=== PATIENT | female | born 1980 | race Caucasian/White ===

== ENCOUNTER 2016-03-21 19:11 | Emergency (ER) | payer BC ==
[2016-03-21 20:13] VITALS: BP 142/87
--- NOTE | 2016-03-21 21:26 | UC ---
Respiratory Complaint HPI - HPI Summary HPI Summary: 3 week history of wheezing and congestion. - History of Current Complaint Chief Complaint: UCRespiratory Stated Complaint: COUGH/CONGESTION/WHEEZING Time Seen by Provider: 03/21/16 21:16 Hx Obtained From: Patient Hx Last Menstrual Period: 03/11/16 Onset/Duration: Gradual Onset, Lasting Weeks Timing: Intermittent Episodes - of wheeze and congestion. Severity Initially: Moderate Severity Currently: Moderate Character: Cough: Productive Aggravating Factors: Exertion, Deep Breaths, Recumbent Position Alleviating Factors: Bronchodilator - occasional use only, last used 4 days ago Associated Signs And Symptoms: Positive: Fever - low grae, Wheezing, Nasal Congestion, Hoarseness - Risk Factors Pulmonary Embolism Risk Factors: Negative Cardiac Risk Factors: Negative Pseudomonas Risk Factors: Negative Tuberculosis Risk Factors: Negative - Allergies/Home Medications Allergies/Adverse Reactions: Allergies Allergy/AdvReac Type Severity Reaction Status Date / Time No Known Allergies Allergy Verified 03/21/16 20:13 Home Medications: Home Medications Loratadine & Pseudoephedrine [Claritin-D 24 Hour 10-240 mg] 1 tab PO DAILY 03/21 [History Confirmed 03/21/16] Multiple Vitamin [Multi Vitamin] 1 tab PO DAILY 03/21/16 [History Confirmed 04/05] PMH/Surg Hx/FS Hx/Imm Hx Previously Healthy: Yes - Surgical History Surgical History: None - Family History Known Family History: Positive: Cardiac Disease - father has had CHF, Hypertension - father Negative: Respiratory Disease - Social History Occupation: Employed Full-time Lives: Alone Alcohol Use: Occasionally Substance Use Type: None Smoking Status (MU): Never Smoked Tobacco Have You Smoked in the Last Year: No Review of Systems Constitutional: Fatigue Skin: Negative Eyes: Negative ENT: Sore Throat Respiratory: Cough Cardiovascular: Negative Gastrointestinal: Negative Genitourinary: Negative Motor: Negative Neurovascular: Negative Musculoskeletal: Negative Neurological: Negative Psychological: Negative All Other Systems Reviewed And Are Negative: Yes Physical Exam Triage Information Reviewed: Yes Appearance: Ill-Appearing - looks mildly unwell Vital Signs: Initial Vital Signs Temp 99.5 F 03/21/16 20:08 Pulse 100 03/21/16 20:08 Resp 16 03/21/16 20:08 BP 142/87 03/21/16 20:08 Pulse Ox 99 03/21/16 20:08 Eye Exam: Normal ENT: Positive: Pharyngeal erythema, TMs normal Neck: Positive: Supple, Nontender Respiratory: Positive: Decreased breath sounds, Wheezing - scattered wheezing through both lung green Cardiovascular: Positive: RRR, No Murmur Neurological Exam: Normal Psychological Exam: Normal Skin Exam: Normal UC Diagnostic Evaluation - Laboratory O2 Sat by Pulse Oximetry: 99 Respiratory Course/Dx - Course Course Of Treatment: azithromycin for bronchitis. - Differential Dx/Diagnosis Differential Diagnosis/HQI/PQRI: Asthma, Bronchitis, Influenza, Sinusitis Provider Diagnoses: bronchitis. Discharge - Discharge Plan Condition: Stable Disposition: HOME Prescriptions: Albuterol HFA INHALER* [Ventolin HFA Inhaler*] 1 - 2 puff INH Q4H PRN #1 mdi PRN Reason: Wheezing Azithromycin TAB* [Zithromax TAB (Z-PEPPER) 250 mg #6 tabs] 250 mg PO DAILY #4 tab Patient Education Materials: Acute Bronchitis (ED) Additional Instructions: Take full course of antibiotics, and ensure that you increase rest and sleep. Use albuterol as needed to decrease wheeze.
[2016-03-21] MEDS ORDERED: Azithromycin TAB* 250 MG PO ONE (21:30)
== END 2016-03-21 21:44 | disposition home or self-care (01) ==
LOC: UCCORT 19:11
DX: J40 Bronchitis, not specified as acute or chronic (principal)
CPT/HCPCS: 99212; A9270-GY; G0463

== ENCOUNTER 2016-07-05 13:01 | Emergency (ER) | payer BC ==
[2016-07-05 13:21] VITALS: BP 135/88
--- NOTE | 2016-07-05 14:18 | UC ---
Knee Pain HPI - HPI Summary HPI Summary: left knee pain and swelling--has been getting worse over the past 7 days-- - History of Current Complaint Chief Complaint: UCLowerExtremity Stated Complaint: LEFT KNEE PAIN Time Seen by Provider: 07/05/16 14:12 Hx Obtained From: Patient Hx Last Menstrual Period: 06/26/16 ?: No Onset/Duration: Gradual Onset, Lasting Days - 7, Worse Since - one day Severity Initially: Mild Severity Currently: Moderate Location Of Injury: left knee Pain Intensity: 6 Pain Scale Used: 0-10 Numeric Character: Throbbing, Stiffness Aggravating Factor(s): Movement, Weight Bearing Alleviating Factor(s): Rest, Position Associated Signs And Symptoms: Positive: Swelling Able to Bear Weight: Yes - with pain - Allergies/Home Medications Allergies/Adverse Reactions: Allergies Allergy/AdvReac Type Severity Reaction Status Date / Time No Known Allergies Allergy Verified 07/05/16 13:21 PMH/Surg Hx/FS Hx/Imm Hx Previously Healthy: Yes - Surgical History Surgical History: None - Family History Known Family History: Positive: Cardiac Disease - father has had CHF, Hypertension - father Negative: Respiratory Disease - Social History Occupation: Employed Full-time - teacher Lives: With Family Alcohol Use: Occasionally Substance Use Type: None Smoking Status (MU): Never Smoked Tobacco Have You Smoked in the Last Year: No Review of Systems Constitutional: Negative Skin: Negative Eyes: Negative ENT: Negative Respiratory: Negative Cardiovascular: Negative Gastrointestinal: Negative Genitourinary: Negative Motor: Decreased ROM - left knee due to pain Neurovascular: Negative Musculoskeletal: Arthralgia - left knee, Edema - left knee Neurological: Negative Psychological: Negative All Other Systems Reviewed And Are Negative: Yes Physical Exam Triage Information Reviewed: Yes Appearance: Well-Appearing, Well-Nourished, Pain Distress Vital Signs: Initial Vital Signs Temp 98.2 F 07/05/16 13:14 Pulse 55 07/05/16 13:14 Resp 16 07/05/16 13:14 BP 135/88 07/05/16 13:14 Pulse Ox 100 07/05/16 13:14 Vital Signs Reviewed: Yes Eye Exam: Normal Eyes: Positive: Conjunctiva Clear ENT Exam: Normal ENT: Positive: Normal ENT inspection, Hearing grossly normal. Negative: Nasal congestion, Nasal drainage, Trismus, Muffled/hoarse voice Dental Exam: Normal Neck exam: Normal Neck: Positive: Supple, Nontender, No Lymphadenopathy Respiratory Exam: Normal Respiratory: Positive: Chest non-tender, Lungs clear, Normal breath sounds, No respiratory distress, No accessory muscle use Cardiovascular Exam: Normal Cardiovascular: Positive: RRR, No Murmur, Pulses Normal, Brisk Capillary Refill Musculoskeletal Exam: Normal Musculoskeletal: Positive: Strength Limited @ - right knee, ROM Limited @ - right knee, Edema @ - right knee Neurological Exam: Normal Neurological: Positive: Alert, Muscle Tone Normal Psychological Exam: Normal Skin Exam: Normal Diagnostics - Radiology No standard instances Xray Interpretation: Positive (See Comments) - Arthritis changes left knee Radiology Interpretation Completed By: Radiologist Re-Evaluation - Re-Evaluation First Eval Change: Improved - cane , donaldo wrap Knee Pain Course/Dx - Course Course Of Treatment: follow with ortho , Mobic, Physical therapy, prn hydrocodone at [facility] , donaldo and cane - Differential Dx/Diagnosis Differential Diagnosis/HQI/PQRI: Bursitis, Contusion, Fracture (Closed), Sprain , Strain Provider Diagnoses: Arthritis left knee Discharge - Discharge Plan Condition: Stable Disposition: HOME Prescriptions: Hydrocodone-Acetaminophen [Hydrocodone/Acetaminophen 5-325 mg] 1 tab PO Q6H PRN #16 tab MDD 4 PRN Reason: Pain Meloxicam [Mobic] 7.5 mg PO BID #60 tab Patient Education Materials: Knee Pain (ED), Arthritis (ED) Referrals: Mariano Jane MD [Medical Doctor] - 5 Days Cornell Kent MD [Primary Care Provider] -
[2016-07-05] MEDS ORDERED: Ibuprofen TAB* 600 MG PO ONE (14:19)
--- NOTE | 2016-07-05 14:56 | RAD ---
INDICATION: Knee pain COMPARISON: None TECHNIQUE: AP, lateral, tunnel, and sunrise views were obtained. FINDINGS: There are no acute bony findings. There is minor spurring tibial spines and there is minor patellofemoral spurring. There is no significant joint effusion. IMPRESSION: MINOR OSTEOARTHRITIC CHANGES
== END 2016-07-05 15:27 | disposition home or self-care (01) ==
LOC: UCCORT 13:01
DX: M17.12 Unilateral primary osteoarthritis, left knee (principal)
CPT/HCPCS: 99213; A9270-GY; G0463

== ENCOUNTER 2017-03-09 14:26 | Emergency (ER) | payer BC ==
[2017-03-09 15:08] VITALS: BP 136/86
[2017-03-09] MEDS ORDERED: Albuterol HFA INHALER* 8 gm MDI INH ONE ×2 (16:22→16:52)
--- NOTE | 2017-03-09 16:22 | UC ---
Throat Pain/Nasal [place] HPI - HPI Summary HPI Summary: Patient has had a cough for a few days, no it is sever, STEPHENSON, neck and body aches , sore throat. denies fever, + chills - History of Current Complaint Chief Complaint: UCRespiratory Stated Complaint: COUGH/VOMITTING CAUSING SOB Time Seen by Provider: 03/09/17 16:13 Hx Obtained From: Patient Hx Last Menstrual Period: 02/21/17 ?: No Onset/Duration: Sudden Onset, Lasting Days Severity: Moderate Cough: Nonproductive Associated Signs & Symptoms: Positive: Dysphagia, Wheezing, Vomiting - Allergies/Home Medications Allergies/Adverse Reactions: Allergies Allergy/AdvReac Type Severity Reaction Status Date / Time No Known Allergies Allergy Verified 03/09/17 15:08 PMH/Surg Hx/FS Hx/Imm Hx Previously Healthy: Yes - Surgical History Surgical History: None - Family History Known Family History: Positive: Cardiac Disease - father has had CHF, Hypertension - father Negative: Respiratory Disease - Social History Alcohol Use: Rare Substance Use Type: None Smoking Status (MU): Never Smoked Tobacco Have You Smoked in the Last Year: No Review of Systems Constitutional: Chills, Fatigue Skin: Negative Eyes: Negative ENT: Sore Throat, Ear Ache, Nasal Discharge Respiratory: Shortness Of Breath, Cough Cardiovascular: Negative Gastrointestinal: Vomiting Genitourinary: Negative Motor: Negative Neurovascular: Negative Musculoskeletal: Myalgia Neurological: Headache Psychological: Negative Is Patient Immunocompromised?: No All Other Systems Reviewed And Are Negative: Yes Physical Exam Triage Information Reviewed: No Appearance: Well-Appearing, Well-Nourished, Ill-Appearing, Pain Distress Vital Signs: Initial Vital Signs Temp 99.9 F 03/09/17 15:03 Pulse 91 03/09/17 15:03 Resp 18 03/09/17 15:03 BP 136/86 03/09/17 15:03 Pulse Ox 98 03/09/17 15:03 Vital Signs Reviewed: Yes Eye Exam: Normal ENT: Positive: Pharyngeal erythema, TM bulging, TM dull - bilaterally, Tonsillar swelling Dental Exam: Normal Neck exam: Normal Neck: Positive: Supple, Nontender, Enlarged Nodes @ - bilateral cervical, occipital Respiratory Exam: Normal Respiratory: Positive: Chest non-tender, Rhonchi, Wheezing, Inspiration Cardiovascular Exam: Normal Cardiovascular: Positive: RRR, No Murmur, Pulses Normal Abdominal Exam: Normal Abdomen Description: Positive: Nontender, No Organomegaly, Soft Bowel Sounds: Positive: Present Musculoskeletal Exam: Normal Musculoskeletal: Positive: Strength Intact, ROM Intact, No Edema Neurological Exam: Normal Neurological: Positive: Alert, Muscle Tone Normal Psychological Exam: Normal Skin Exam: Normal Re-Evaluation - Re-Evaluation First Eval Re-Evaluation Time: 16:50 Change: Improved - following neb treatment Throat Pain/Nasal Course/Dx - Course Course Of Treatment: hx obtained, exam performed ,meds reviewed, rapid flu obtained. - Differential Dx/Diagnosis Differential Diagnosis/HQI/PQRI: Otitis Media, Pharyngitis, Sinusitis, URI Provider Diagnoses: bronchospasm, wheezing, influenza B Discharge - Discharge Plan Condition: Stable Disposition: HOME Patient Education Materials: Influenza (ED) Referrals: Cornell Kent MD [Primary Care Provider] - Additional Instructions: 1. Take the medication as prescribed. 2. If you develop any increased severe respiratory distress follow up in the ER. 3. Increase fluids and get plenty of rest.
[2017-03-09] MEDS ORDERED: Albuterol 2.5 MG/3 ML NEB.SOL* (0.083%) INH ONE (16:31)
== END 2017-03-09 17:10 | disposition home or self-care (01) ==
LOC: UCCORT 14:26
DX: J98.01 Acute bronchospasm (principal); R06.2 Wheezing; J10.1 Influenza due to other identified influenza virus with other respiratory manifestations
CPT/HCPCS: 87502; 99213; A9270-GY; G0463

== ENCOUNTER 2017-03-19 16:05 | Emergency (ER) | payer BC ==
[2017-03-19 17:06] VITALS: BP 149/93
--- NOTE | 2017-03-19 17:35 | UC ---
Throat Pain/Nasal [place] HPI - HPI Summary HPI Summary: Pt c/o nasal congestion, sinus pressure and pain X 2 weeks. Pt was diagnosed with flu A 1 week ago. Now c/o continued nasal congestion, sinus pressure and pain. - History of Current Complaint Chief Complaint: UCGeneralIllness Stated Complaint: SINUS PRESSURE Time Seen by Provider: 03/19/17 17:10 Hx Obtained From: Patient Hx Last Menstrual Period: 03/19/17 ?: No Onset/Duration: Gradual Onset, Lasting Days - 14 Severity: Moderate Pain Intensity: 7 Associated Signs & Symptoms: Positive: Sinus Discomfort - Allergies/Home Medications Allergies/Adverse Reactions: Allergies Allergy/AdvReac Type Severity Reaction Status Date / Time No Known Allergies Allergy Verified 03/19/17 17:01 PMH/Surg Hx/FS Hx/Imm Hx Previously Healthy: Yes - Surgical History Surgical History: None - Family History Known Family History: Positive: Cardiac Disease - father has had CHF, Hypertension - father Negative: Respiratory Disease - Social History Occupation: Employed Full-time Lives: With Family Alcohol Use: Occasionally Substance Use Type: None Smoking Status (MU): Never Smoked Tobacco Have You Smoked in the Last Year: No Review of Systems Constitutional: Negative Skin: Negative Eyes: Negative ENT: Sinus Congestion, Sinus Pain/Tenderness Respiratory: Negative Cardiovascular: Negative Gastrointestinal: Negative Genitourinary: Negative Motor: Negative Neurovascular: Negative Musculoskeletal: Negative Neurological: Headache Psychological: Negative Is Patient Immunocompromised?: No All Other Systems Reviewed And Are Negative: Yes Physical Exam Triage Information Reviewed: Yes Appearance: Ill-Appearing Vital Signs: Initial Vital Signs Temp 98.2 F 03/19/17 17:02 Pulse 85 03/19/17 17:02 Resp 16 03/19/17 17:02 BP 149/93 03/19/17 17:02 Pulse Ox 100 03/19/17 17:02 Vital Signs Reviewed: Yes Eye Exam: Normal ENT Exam: Other ENT: Positive: Nasal congestion, Sinus tenderness - right maxillary sinus Neck exam: Normal Respiratory Exam: Normal Cardiovascular Exam: Normal Musculoskeletal Exam: Normal Neurological Exam: Normal Psychological Exam: Normal Skin Exam: Normal Throat Pain/Nasal Course/Dx - Differential Dx/Diagnosis Differential Diagnosis/HQI/PQRI: Sinusitis, URI Provider Diagnoses: sinusitis Discharge - Discharge Plan Condition: Stable Disposition: HOME Prescriptions: Amoxicillin PO (*) [Amoxicillin 875 MG (*)] 875 mg PO Q12H #20 tab Patient Education Materials: Sinusitis (ED) Referrals: No Primary Care Phys,NOPCP [Primary Care Provider] - [facility] [place] [facility] [Outside]
== END 2017-03-19 17:35 | disposition home or self-care (01) ==
LOC: UCCORT 16:05
DX: J32.9 Chronic sinusitis, unspecified (principal)
CPT/HCPCS: 99212; G0463

== ENCOUNTER 2018-05-13 17:05 | Emergency (ER) | payer BC ==
[2018-05-13 18:13] VITALS: BP 145/95
--- NOTE | 2018-05-13 19:06 | UC ---
Back Pain HPI - HPI Summary HPI Summary: Pt presents with c/o intermittent low back pain X 1 month, Pt denies any recent injury Has hx of low back pain. - History of Current Complaint Chief Complaint: UCBackPain Stated Complaint: BACK/HIP PAIN Time Seen by Provider: 05/13/18 18:32 Hx Obtained From: Patient Hx Last Menstrual Period: 04/23/18 ?: No Onset/Duration: Gradual Onset, Lasting Hours, Resolved Timing: Intermittent, Lasting Hours Severity Initially: Moderate Severity Currently: None Pain Intensity: 1 Back Pain: Is Diffuse Character: Sharp, Dull, Aching, Spasmodic, Stiffness Aggravating Factor(s): Movement, Other - prolonged standing Alleviating Factor(s): Rest, Position, OTC Meds Associated Signs And Symptoms: Positive: Negative - Risk Factors AAA Risk Factors: Negative TAD Risk Factors: Negative Cauda Equina Risk Factors: Negative Epidural Abscess Risk Factors: Negative - Allergies/Home Medications Allergies/Adverse Reactions: Allergies Allergy/AdvReac Type Severity Reaction Status Date / Time No Known Allergies Allergy Verified 05/13/18 18:05 Home Medications: Home Medications Naproxen Sodium [Naproxen 220 mg] 220 mg PO PRN 05/13/18 [History] PMH/Surg Hx/FS Hx/Imm Hx Previously Healthy: Yes - Surgical History Surgical History: None - Family History Known Family History: Positive: Cardiac Disease - father has had CHF, Hypertension - father Negative: Respiratory Disease - Social History Occupation: Employed Full-time Lives: With Family Alcohol Use: Occasionally Substance Use Type: None Smoking Status (MU): Never Smoked Tobacco Have You Smoked in the Last Year: No Review of Systems All Other Systems Reviewed And Are Negative: Yes Constitutional: Positive: Negative Skin: Positive: Negative Eyes: Positive: Negative ENT: Positive: Negative Respiratory: Positive: Negative Cardiovascular: Positive: Negative Gastrointestinal: Positive: Negative Genitourinary: Positive: Negative Motor: Positive: Negative Neurovascular: Positive: Negative Musculoskeletal: Positive: Myalgia Neurological: Positive: Negative Psychological: Positive: Negative Is Patient Immunocompromised?: No Physical Exam Triage Information Reviewed: Yes Appearance: Well-Appearing, Obese Vital Signs: Initial Vital Signs Temp 97.9 F 05/13/18 18:07 Pulse 81 05/13/18 18:07 Resp 16 05/13/18 18:07 BP 145/95 05/13/18 18:07 Pulse Ox 100 05/13/18 18:07 Vital Signs Reviewed: Yes Eye Exam: Normal ENT Exam: Normal Dental Exam: Normal Neck exam: Normal Respiratory Exam: Normal Musculoskeletal Exam: Normal Musculoskeletal: Positive: Strength Intact, ROM Intact, No Edema Neurological Exam: Normal Psychological Exam: Normal Skin Exam: Normal Back Pain Course/Dx - Differential Dx/Diagnosis Differential Diagnosis/HQI/PQRI: Herniated Disc, Sprain Provider Diagnosis: Low back strain Discharge - Sign-Out/Discharge Documenting (check all that apply): Patient Departure All imaging exams completed and their final reports reviewed: No Studies - Discharge Plan Condition: Stable Disposition: HOME Patient Education Materials: Back Pain (ED), Lower Back Exercises (ED) Referrals: [facility] [Outside] - If Needed No Primary Care Phys,NOPCP [Primary Care Provider] - - Billing Disposition and Condition Condition: STABLE Disposition: Home - Attestation Statements Provider Attestation: Per institutional requirements, I have reviewed the chart, however, I was not consulted specifically or made aware of this patient by the midlevel provider. I did not personally evaluate, interact with , or disposition this patient.
== END 2018-05-13 19:16 | disposition home or self-care (01) ==
LOC: UCCORT 17:05
DX: S39.012A Strain of muscle, fascia and tendon of lower back, initial encounter (principal); X58.XXXA Exposure to other specified factors, initial encounter; Y92.9 Unspecified place or not applicable
CPT/HCPCS: 99211; G0463

== ENCOUNTER 2019-06-01 08:34 | Emergency (ER) | payer BC ==
--- NOTE | 2019-06-01 09:06 | UC ---
Headache HPI - HPI Summary HPI Summary: 39 yo with hx of migraine, with onset of headache on 05/29/19. Began gradually and has worsened, bilateral, with mild photophobia and nausea but no dizziness, vision changes, ataxia. Typical migraine for her tends to be associated with menses, responds to ibuprofen, and has mild scotoma. Hx of allergies and sinus congestion, did begin having some ear pressure and sinus pressure last week which provoked her beginning use of anthistamine. She does have increase in pain with forward bending. Has had sinus infections in the past. Finding it hard to focus. Hx of anxiety, took paroxitene in the past, and she is aware that the current change of routine is very upsetting to her. Did adopt a dog last weekend, denies hx of dog allergy, but is aware of adjustment in routine. Sleep mildly disrupted. She has been taking ibuprofen 600 to 800 mg once daily. - History Of Current Complaint Chief Complaint: Paul Stated Complaint: HEADACHE x3 DAYS Time Seen by Provider: 06/01/19 09:02 Hx Obtained From: Patient Hx Last Menstrual Period: 05/21/19 Onset/Duration: Gradual Onset, Lasting Days Onset Of Symptoms: Gradual Initially Headache Was: Moderate Pain Intensity: 7 Timing: Constant Character: Throbbing, Pressure Location of Headache: Temporal - both temples Aggravating Factor(s): Position Change, Bright Lights Allevating Factor(s): Rest, Medication Associated Signs And Symptoms: Positive: Nausea, Sinus Pressure, Neck Pain. Negative: Dizziness, Vomiting, Fever, Neck Stiffness, Decreased LOC, Visual Changes - Risk Factors SAH Risk Factors: Negative Meningitis Risk Factors: Negative SDH Risk Factors: Negative Temporal Arteritis Risk Factors: Negative - Allergies/Home Medications Allergies/Adverse Reactions: Allergies Allergy/AdvReac Type Severity Reaction Status Date / Time No Known Allergies Allergy Verified 06/01/19 09:11 Home Medications: Home Medications Amoxicillin PO (*) [Amoxicillin 875 MG (*)] 875 mg PO BID #20 tab 06/01/19 [Rx] Cyclobenzaprine TAB* [Flexeril 10 MG TAB*] 10 mg PO DAILY PRN #10 tab 06/01/19 [ Rx] Ibuprofen TAB* [Advil TAB*] 200 mg PO Q6H PRN 06/01/19 [History Confirmed ] Loratadine/Pseudoephedrine [Claritin-D 24 Hour Tablet] 1 each PO DAILY PRN 05/31 [History Confirmed 06/01/19] PMH/Surg Hx/FS Hx/Imm Hx Previously Healthy: Yes Psychological History: Anxiety - Surgical History Surgical History: None - Family History Known Family History: Positive: Cardiac Disease - father has had CHF, Hypertension - mother, possibly father Negative: Respiratory Disease - Social History Occupation: Employed Full-time Lives: With Family Alcohol Use: Occasionally Substance Use Type: None Smoking Status (MU): Never Smoked Tobacco Have You Smoked in the Last Year: No Review of Systems All Other Systems Reviewed And Are Negative: Yes Constitutional: Positive: Fatigue Skin: Positive: Negative Eyes: Positive: Negative ENT: Positive: Ear Ache, Sinus Pain/Tenderness Respiratory: Positive: Negative Cardiovascular: Positive: Negative Gastrointestinal: Positive: Nausea. Negative: Abdominal Pain, Vomiting, Diarrhea Genitourinary: Positive: Negative Motor: Positive: Negative Neurovascular: Positive: Negative Musculoskeletal: Positive: Negative Neurological/Mental Status: Positive: Headache Psychological: Positive: Anxious - aware of increasing anxiety, took paroxitene in the past. Uses routine to prevent anxiety and at present feels out of whack. Is Patient Immunocompromised?: No Physical Exam Triage Information Reviewed: Yes Appearance: Well-Appearing, Pain Distress - mild to moderate, Obese Eye Exam: Other - [place], normal fundi Eyes: Positive: Conjunctiva Clear ENT: Positive: Pharynx normal, TM dull - mild serous fluid, Sinus tenderness - minimal Neck: Positive: Supple, Nontender, No Lymphadenopathy Respiratory: Positive: Lungs clear, Normal breath sounds Cardiovascular: Positive: RRR, No Murmur Musculoskeletal Exam: Normal Musculoskeletal: Positive: Strength Intact, ROM Intact Neurological: Positive: Alert, Muscle Tone Normal Psychological Exam: Other - tearful and mildly anxious Skin Exam: Normal Re-Evaluation - Re-Evaluation First Eval Re-Evaluation Time: 10:20 Change: Improved Comment: significant decrease in pain, with some residual pain in the temples. Headache Course/Dx - Course Course Of Treatment: Discussed could be sinus related, but also has features of tension headache. Toradol given here for relief of pain. Given hx will try antibiotic for possible sinusitis. - Differential Dx/Diagnosis Differential Diagnosis/HQI/PQRI: Migraine, Sinus Headache, Tension Headache Provider Diagnosis: Sinusitis, Tension headache Discharge ED - Sign-Out/Discharge Documenting (check all that apply): Patient Departure All imaging exams completed and their final reports reviewed: No Studies - Discharge Plan Condition: Stable Disposition: HOME Prescriptions: Amoxicillin PO (*) [Amoxicillin 875 MG (*)] 875 mg PO BID #20 tab Cyclobenzaprine TAB* [Flexeril 10 MG TAB*] 10 mg PO DAILY PRN #10 tab PRN Reason: Spasms - Neck Patient Education Materials: Sinusitis (ED), Tension Headache (ED) Referrals: No Primary Care Phys,NOPCP [Primary Care Provider] - [facility] [Outside] [facility] [place] [facility] [Outside] Additional Instructions: As discussed, there are mixed features to your headache, suggestive of sinus pain and tension headache. Begin amoxicillin for treatment of sinusitis. If the tension in the neck continues, try use of cyclobenzaprine before bed. This is a muscle relaxant and will cause sedation. You have a referral to the [facility] clinic, which can do an interim assessment if you are having persistent problems with headache or anxiety. You also have the number for Charisse Morel, to help to set you up with a primary care doctor. - Billing Disposition and Condition Condition: STABLE Disposition: Home
[2019-06-01 09:10] VITALS: BP 142/94
[2019-06-01] MEDS ORDERED: Ketorolac *IM* INJ* 60 MG/2 ML VIAL IM ONE (09:34)
== END 2019-06-01 10:35 | disposition home or self-care (01) ==
LOC: UCCORT 08:34
DX: J32.9 Chronic sinusitis, unspecified (principal); G44.209 Tension-type headache, unspecified, not intractable; R11.0 Nausea
CPT/HCPCS: 96372; 99212; G0463; J1885